=== PATIENT | male | born 1995 | race African-American/Black ===

== ENCOUNTER 2021-08-13 08:35 | Inpatient (IN) ==
--- NOTE | 2021-08-12 09:42 | Anesthesiology Consultation ---
Date of Service August 12, 2021 Assessment & Plan (1) Encounter for pre-operative examination: - COVID screening: Per assessment on 08/12: Travel screen negative, no known COVID-19 positive contacts or current COVID-19 related symptoms. Patient vacci nated. Quarantined per [facility] preop protocol. Per PAT chart check nurse, preop COVID test was still pending but with clarification from surgeon's office, received preop COVID test results- done 08/10 and negative. -Substance use: opioid/amphetamine substance use hx per PAT RN phone interview (no further details) - Medical necessity: Per surgeon note (07/29/21): "His x-rays and MRI are consistent with a chronic osteomyelitis at the fourth and fifth metacarpal bases, and likely extending into the hamate as well. There is severe erosion of the base of those bones, especially at the fifth metacarpal base with dorsal subluxation. This is very likely related to his previous IV drug injections into that area. I advised him that the #1 priority is clearance of the infection. I would highly recommend a debridement surgery, as well as initiation of IV antibiotic therapy based on intraoperative culture results. He would likely need about 3 months of IV antibiotics via PICC line. This will require an inpatient stay until culture results are obtained and infectious disease consultation is obtained. I am not sure how feasible this will be with his current incarcerated status. Only after the infection is completely eradicated could we consider reconstruction of the fourth and fifth metacarpal bases. This would likely require iliac crest bone grafting to make up the bony defect, and permanent fusion of the fourth and fifth CMC joints. He does wish to pursue this treatment option. Risks, benefits, and alternatives of surgery were explained in detail. The surgical procedure, as well as postoperative recovery and rehabilitation, was also explained in detail. Risks include bleeding; persistent infection; damage to surrounding structures such as nerves, blood vessels, and tendons that run in the area; persistent pain, numbness, weakness, or stiffness; or need for further surgery. The patient understands all of this and wishes to proceed with surgery. Preoperative workup was completed today, and informed consent was obtained." Case reviewed with Dr. Chase/Dr. Gilliland. They feel that case is medically necessary to proceed as scheduled. Chart Review Chart Review: Acceptable Risk for Surgery and Patient NOT seen in Pre Admission Testing History Surgery Operation Date: 08/13/21 09:35 Proposed Procedures p Right Hand Incision and Drainage Osteomyelitis 4th and 5th Metacarpal Bases - Cas Forrester M.D. Operation Date: 08/13/21 14:10 Proposed Procedures p Right Hand Incision and Drainage Oateomyelitis 4th snd 5th Metacarpal Bases - Cas Forrester M.D. Height/Weight Height: 5 ft 8 in Weight: 77.111 kg Allergies Allergy/AdvReac Type Severity Reaction Status Date / Time No Known Allergies Allergy Verified 08/13/21 08:55 Medications Home Medications Medication Instructions Recorded Confirmed Last Taken acetaminophen 325 mg tablet 325 mg PO QID PRN 07/29/21 08/13/21 Unknown (Tylenol) levalbuterol tartrate 45 2 inh INHALATION QID PRN 07/29/21 08/13/21 Unknown mcg/actuation aerosol inhaler (Xopenex HFA) prazosin 1 mg capsule 1 mg PO HS 07/29/21 08/13/21 08/12/21 20:30 trazodone 150 mg tablet 300 mg PO HS 07/29/21 08/13/21 08/12/21 20:30 Past Medical History Medical History Adjustment disorder with anxiety Depression Inmate in correctional facility Osteomyelitis Past Family History Family History Other Family history unknown Past Surgical History Surgical History (Updated 08/13/21 @ 08:55 by Mary Medrano RN) H/O removal of cyst from head Surgical history unknown Social History Smoking Status: Unknown if ever smoked Hx Substance Use: Yes substance use type: amphetamines and opiates Physical Exam Vital Signs Last Vital Signs Temp 97.9 F 08/13/21 09:01 Pulse 55 L 08/13/21 09:01 Resp 16 08/13/21 09:01 BP 114/74 08/13/21 09:01 Pulse Ox 98 08/13/21 09:01
[~2021-08-13 08:35] MED LIST: ROPIVACAINE 0.5% 5 MG/ML 30 ML VIAL ONE
[2021-08-13] MEDS ORDERED: ATROPINE SULFATE 0.1 MG/ML 10ML SYR IV PRN (09:20)
[2021-08-13] MEDS ORDERED: ONDANSETRON INJ 2 MG/ML 2 ML VIAL IV PRN ×2 (09:20→16:02)
[2021-08-13] MEDS ORDERED: fentaNYL citrate 100 MCG/2 ML VIAL IV PRN (09:20)
[2021-08-13] MEDS ORDERED: ePHEDrine sulfate 50 MG/ML AMP IV PRN (09:20)
[2021-08-13] MEDS ORDERED: ONDANSETRON INJ 2 MG/ML 2 ML VIAL ONE (10:09)
[2021-08-13] MEDS ORDERED: fentaNYL citrate 100 MCG/2 ML VIAL ONE (10:09)
--- NOTE | 2021-08-13 11:02 | History & Physical Bridge Note ---
Date of Service August 13, 2021 History & Physical Bridge Note I have examined the patient, reviewed the History & Physical and in the interval since the performance of the History & Physical I have noted the following changes of clinical significance: no changes noted
[2021-08-13] MEDS ORDERED: LIDOCAINE 1% LOCAL 20 ML VIAL ONE (11:03)
[2021-08-13] MEDS ORDERED: BUPIVACAINE 0.5 % 5 MG/1 ML MPF 30ML VIAL ONE (11:03)
[2021-08-13] MEDS ORDERED: MIDAZOLAM HCL 1 MG/ML 2ML VIAL ONE (11:04)
[2021-08-13] MEDS ORDERED: LACTATED RINGER'S 1,000 ML IV SCH (11:15)
[2021-08-13] MEDS ORDERED: LIDOCAINE 2% 2 ML VIAL/AMP(20MG/ML) INFIL ONE (11:34)
[2021-08-13] MEDS ORDERED: PROPOFOL IV EMULSION 10 MG/ML 20 ML VIAL IV ONE (11:34)
[2021-08-13] MEDS ORDERED: TOBRAMYCIN SULFATE VIAL ONE (12:26)
[2021-08-13] MEDS ORDERED: VANCOMYCIN HCL 1000MG/20ML VIAL ONE (12:26)
--- NOTE | 2021-08-13 13:50 | Post Operative Brief Note ---
Immediate Post Op Note v1 Date of Surgery August 13, 2021 Pre & Post Diagnosis Operation Date: 08/13/21 09:35 Pre-Op Diagnosis: Right Hand Chronic Osteomyelitis of 4th and 5th Metacarpal Bases Post-Op Diagnosis: Right Hand Chronic Osteomyelitis of 4th and 5th Metacarpal Bases I identified the patient and participated in the time-out.: Yes Procedure Operation Date: 08/13/21 09:35 Actual Procedures 1. Right hand debridement, irrigation, partial excision of 4th metacarpal base chronic osteomyelitis with placement of antibiotic cement spacer ([id number]) 2. Right hand debridement, irrigation, partial excision of 5th metacarpal base chronic osteomyelitis with placement of antibiotic cement spacer ([id number]) - Cas Forrester M.D. Surgeon Cas Forrester Airplane Flight Attendant Nino Alfonso PA-C Estimated Blood Loss 10 Findings Consistent with Post-Op Diagnosis
--- NOTE | 2021-08-13 13:55 | Fluoroscopy Report ---
FL hand RT 3V RTN CLINICAL HISTORY: RT 4TH 5TH KWIRES FOR OSTEOMYELITIS TECHNIQUE: 3 views were obtained with the C-arm in the OR with the above procedure. Total fluoroscopy time was 39.3 seconds. Total skin dose was 1.7 mGy. Comparison: None available at the time of this dictation. FINDINGS/IMPRESSION: Intraoperative images of the right third and fourth metacarpal pinning were obta ined. Please correlate with intraoperative fluoroscopy and operative report. ACT 112: Negative or not required by law. Electronically signed by: Sb Felton M.D. 08/13/2021 1:54 PM
--- NOTE | 2021-08-13 14:14 | Anesthesiology Progress Note ---
Date of Service August 13, 2021 Anesthesia Post Procedure Vital Signs Vital Signs: Temp Pulse Pulse Resp BP Pulse Ox 08/13/21 13:57 97.2 F L 83 14 136/69 100 08/13/21 09:01 97.9 F 55 L 16 114/74 98 Transfer of Care Handoff Completed per policy Notes Mental Status: alert / awake / arousable and participated in evaluation Patient Amnestic to Procedure: Yes Nausea / Vomiting: adequately controlled Pain: adequately controlled Airway Patency, RR, SpO2: stable & adequate BP & HR: stable & adequate Hydration State: stable & adequate Anesthetic Complications: no major complications apparent and Pt Satisfied with anesthetic care
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
[2021-08-13] MEDS ORDERED: bisacodyL 10 MG SUPP PR PRN (16:02)
[2021-08-13] MEDS ORDERED: LEVALBUTEROL TARTRATE 15 GM HFA.AER.AD INH PRN (16:02)
[2021-08-13] MEDS ORDERED: MAGNESIUM HYDROXIDE SUSP 30 ML UDC PO PRN (16:02)
[2021-08-13] MEDS ORDERED: METOCLOPRAMIDE HCL INJ 5 MG/ML 2 ML VIAL IV PRN (16:02)
[2021-08-13] MEDS ORDERED: SODIUM CHLORIDE 0.9% 1000ML 1,000 ML IV SCH (16:02)
[2021-08-13] MEDS ORDERED: NALOXONE HCL 0.4 MG/1 ML VIAL/CARP IV PRN (16:02)
[2021-08-13] MEDS: ACETAMINOPHEN 500 MG TAB PO SCH ×2 (17:33→21:37)
[2021-08-13] MEDS: IBUPROFEN 600 MG TAB PO SCH ×2 (17:33→23:11)
[2021-08-13] MEDS: oxyCODONE HCL IR 5 MG TAB (IMMEDIATE RELEASE) PO PRN ×3 (18:39→23:12)
[2021-08-13] MEDS: DOCUSATE SODIUM 100 MG CAP PO SCH (20:18)
[2021-08-13] MEDS: SENNA 8.6 MG TAB PO SCH (20:18)
[2021-08-13] MEDS: PRAZOSIN HCL 1 MG CAP PO SCH (20:18)
[2021-08-13] MEDS: ceFAZolin 2000MG 2,000 MG/15 ML SYR IV SCH (20:19)
[2021-08-13] MEDS: traZODone HCL 100 MG TAB PO SCH (20:19)
[2021-08-14] MEDS: oxyCODONE HCL IR 5 MG TAB (IMMEDIATE RELEASE) PO PRN ×4 (03:01→21:17)
[2021-08-14] MEDS: ceFAZolin 2000MG 2,000 MG/15 ML SYR IV SCH (05:12)
[2021-08-14] MEDS: ACETAMINOPHEN 500 MG TAB PO SCH ×3 (05:15→21:20)
[2021-08-14] MEDS: IBUPROFEN 600 MG TAB PO SCH ×4 (05:15→23:55)
[2021-08-14 05:16] LABS: Hematocrit (blood only) 33.1 % (42-52); Mean Corpuscular Hemoglobin 29.7 pg (25-34); Mean Corpuscular Hgb Conc 33.2 g/dL (32-36); Mean Corpuscular Volume 89.5 fL (80-100); Mean Platelet Volume 9.6 fL (7.4-10.4); Platelet Count 226 K/uL (130-400); RDW Coefficient of Variation 13.7 % (11.5-14.5); RDW Standard Deviation 44.8 fL (36.4-46.3); White Blood Count 5.56 K/uL (4.8-10.8)
[2021-08-14 05:39] LABS: BUN Creatinine Ratio 11.7 (10-20); Calcium 8.5 mg/dl (8.5-10.1); Creatinine Clr Calc Pharmacy 87.9 ml/min; Est GFR (African American) 84.5 ml/min; Est GFR (Non-African American) 72.9 ml/min; Potassium 3.6 mmol/L (3.5-5.1)
[2021-08-14] MEDS: DOCUSATE SODIUM 100 MG CAP PO SCH ×2 (08:34→21:18)
[2021-08-14] MEDS: MULTIVITAMIN TAB PO SCH (08:34)
--- NOTE | 2021-08-14 08:36 | Orthopedic Progress Note ---
Date of Service August 14, 2021 Assessment & Plan (1) Acute osteomyelitis of metacarpal bone of right hand: Plan: Postop day 1 status post 1. Right hand debridement, irrigation, partial excision of 4th metacarpal base chronic osteomyelitis with placement of antibi otic cement spacer ([id number]) 2. Open reduction and pinning of 4th carpometacarpal joint dislocation (09692) 3. Right hand debridement, irrigation, partial excision of 5th metacarpal base chronic osteomyelitis with placement of antibiotic cement spacer (79485)4. Open reduction and pinning of 5th carpometacarpal joint dislocation (96635) Cultures pending. Wound culture showing gram positive bacilli. Infectious disease consult placed. Awaiting their input. Continue IV antibiotics Admission and Anticipated Discharge Date Admission Date: August 13, 2021 Subjective Postop day 1 Patient sitting up in bed awake and alert. Eating breakfast. Having a little bit of pain this morning. No other complaints. Physical Exam Physical Exam: Splint/dressing is clean, dry, and intact. Fingers are mobile with minimal swelling. Sensation is intact. Capillary refill is less than 2 seconds. Results & Data ([facility]) Vital Signs (Past 12 Hours) Vital Signs Temp Pulse Resp BP Pulse Ox 08/14/21 07:40 36.9 C 55 L 14 109/66 94 08/14/21 02:58 36.5 C 54 L 16 105/64 96 08/13/21 23:05 36.5 C 50 L 16 107/67 98
[2021-08-14] MEDS: traZODone HCL 100 MG TAB PO SCH (21:19)
[2021-08-14] MEDS: SENNA 8.6 MG TAB PO SCH (21:19)
[2021-08-14] MEDS: PRAZOSIN HCL 1 MG CAP PO SCH (21:20)
[2021-08-15] MEDS: IBUPROFEN 600 MG TAB PO SCH ×3 (06:05→17:21)
[2021-08-15] MEDS: ACETAMINOPHEN 500 MG TAB PO SCH ×3 (06:05→21:07)
[2021-08-15] MEDS: DOCUSATE SODIUM 100 MG CAP PO SCH ×2 (07:38→21:08)
[2021-08-15] MEDS: MULTIVITAMIN TAB PO SCH (07:38)
[2021-08-15] MEDS: oxyCODONE HCL IR 5 MG TAB (IMMEDIATE RELEASE) PO PRN ×3 (09:54→21:06)
--- NOTE | 2021-08-15 12:05 | Orthopedic Progress Note ---
Date of Service August 15, 2021 Assessment & Plan (1) Acute osteomyelitis of metacarpal bone of right hand: Plan: Postop day 2 status post 1. Right hand debridement, irrigation, partial excision of 4th metacarpal base chronic osteomyelitis with placement of antibi otic cement spacer (40868) 2. Open reduction and pinning of 4th carpometacarpal joint dislocation (07529) 3. Right hand debridement, irrigation, partial excision of 5th metacarpal base chronic osteomyelitis with placement of antibiotic cement spacer (78486)4. Open reduction and pinning of 5th carpometacarpal joint dislocation (44280) Splint and dressing kept in place. Cultures pending. Wound culture showing gram positive bacilli. Infectious disease consult placed. Awaiting their input. Continue IV antibiotics Admission and Anticipated Discharge Date Admission Date: August 13, 2021 Subjective Postop day 2 States he was having some pain in the hand this morning. No other complaints. Denies chest pain, shortness of breath, lightheadedness. Physical Exam Constitutional: WD/WN, vitals as above Musculoskeletal: Extremities: + hand abnormality Right (Splint C/D/I right wrist. Fingers mobile. Cap refill immediate.) Results & Data ([facility]) Vital Signs (Past 12 Hours) Vital Signs Temp Pulse Resp BP Pulse Ox 08/15/21 07:41 36.5 C 55 L 16 115/71 95
[2021-08-15] MEDS: PRAZOSIN HCL 1 MG CAP PO SCH (21:07)
[2021-08-15] MEDS: traZODone HCL 100 MG TAB PO SCH (21:08)
[2021-08-15] MEDS: SENNA 8.6 MG TAB PO SCH (21:08)
[2021-08-16] MEDS: IBUPROFEN 600 MG TAB PO SCH ×5 (00:03→23:16)
[2021-08-16] MEDS: ACETAMINOPHEN 500 MG TAB PO SCH ×3 (05:20→22:13)
[2021-08-16] MEDS: oxyCODONE HCL IR 5 MG TAB (IMMEDIATE RELEASE) PO PRN ×4 (05:20→23:15)
[2021-08-16] MEDS: MULTIVITAMIN TAB PO SCH (07:44)
[2021-08-16] MEDS: DOCUSATE SODIUM 100 MG CAP PO SCH ×2 (07:44→22:14)
[2021-08-16] MEDS ORDERED: PIPERACILL/TAZOBAC CONSULT ACTIVE PRN (09:37)
--- NOTE | 2021-08-16 09:40 | Orthopedic Progress Note ---
Date of Service August 16, 2021 Assessment & Plan (1) Acute osteomyelitis of metacarpal bone of right hand: Plan: POD #3 s/p 1. Right hand debridement, irrigation, partial excision of 4th metacarpal base chronic osteomyelitis with placement of antibiotic cement spacer (03420) 2. Open reduction and pinning of 4th carpometacarpal joint dislocation (38046) 3. Right hand debridement, irrigation, partial excision of 5th metacarpal base chronic osteomyelitis with placement of antibiotic cement spacer (98353) 4. Open reduction and pinning of 5th carpometacarpal joint dislocation (46800) Still awaiting ID input. The patient was not placed on antibiotics because input was anticipated prior to the weekend. We will start Zosyn 3.375 g IV every 6 hours. Splint and dressing were kept in place today. Discharge planningwe will plan for return to the snf once IV antibiotic choice has been given by ID. Admission and Anticipated Discharge Date Admission Date: August 13, 2021 Subjective Postop day 3 Pain is controlled today no other complaints. Denies chest pain, shortness of breath, lightheadedness. Physical Exam Constitutional: WD/WN, vitals as above Musculoskeletal: Extremities: + hand abnormality Right (Splint is C/D/I. Fingers mobile. Cap refill immediate.) Results & Data ([facility]) Vital Signs (Past 12 Hours) Vital Signs Temp Pulse Resp BP Pulse Ox 08/16/21 07:42 36.6 C 61 16 93/53 L 95 08/15/21 22:38 36.9 C 61 20 108/58 L 97 Laboratory Results Gram-positive bacilli on Gram stain. Cultures are still pending. No growth at this time.
[2021-08-16] MEDS ORDERED: PIPERACILLIN/TAZOBACTAM 3.375 GM in DEXTROSE 5% 100 ML IV STA (09:47)
[2021-08-16] MEDS: PIPERACILLIN/TAZOBACTAM 3.375 GM in DEXTROSE 5% 100 ML IV SCH ×2 (15:06→22:08)
[2021-08-16] MEDS: PRAZOSIN HCL 1 MG CAP PO SCH (22:13)
[2021-08-16] MEDS: SENNA 8.6 MG TAB PO SCH (22:14)
[2021-08-16] MEDS: traZODone HCL 100 MG TAB PO SCH (22:15)
[2021-08-17] MEDS: PIPERACILLIN/TAZOBACTAM 3.375 GM in DEXTROSE 5% 100 ML IV SCH (06:13)
[2021-08-17] MEDS: IBUPROFEN 600 MG TAB PO SCH ×4 (06:15→23:01)
[2021-08-17] MEDS: ACETAMINOPHEN 500 MG TAB PO SCH ×3 (06:15→23:00)
[2021-08-17 07:15] LABS: Creatinine Clr Calc Pharmacy 88.6 ml/min; Est GFR (African American) 85.3 ml/min; Est GFR (Non-African American) 73.6 ml/min
--- NOTE | 2021-08-17 07:59 | Orthopedic Progress Note ---
Date of Service August 17, 2021 Assessment & Plan (1) Acute osteomyelitis of metacarpal bone of right hand: Plan: POD #4 s/p 1. Right hand debridement, irrigation, partial excision of 4th metacarpal base chronic osteomyelitis with placement of antibiotic cement spacer ([id number]) 2. Open reduction and pinning of 4th carpometacarpal joint dislocation (80270) 3. Right hand debridement, irrigation, partial excision of 5th metacarpal base chronic osteomyelitis with placement of antibiotic cement spacer (15317) 4. Open reduction and pinning of 5th carpometacarpal joint dislocation (15831) There is an ID report in the chart from postop day #1 the recommended IV vancomycin until cultures are finalized. We will stop the Zosyn today. And start IV vancomycin. Awaiting cultures to be finalized. No growth to date. Splint and dressing were kept in place today. Discharge planningwe will plan for return to the [facility] once IV antibiotic choice has been given by ID. Also spoken with the officers who are with the patient. Last patient they had the required IV antibiotics, there was some time necessary to set up the proper treatment at the [facility]. Once the cultures are finalized and ID gives their final recommendation, we will begin set up of 6 weeks of IV antibiotic treatment at the [facility]. Admission and Anticipated Discharge Date Admission Date: August 13, 2021 Subjective Postop day 4 Pain is controlled today no other complaints. Denies chest pain, shortness of breath, lightheadedness. Physical Exam Constitutional: WD/WN, vitals as above Musculoskeletal: Extremities: + hand abnormality Right (Splint and dressing C/D/I. Fingers mobile. Cap refill immediate.) Results & Data ([facility]) Vital Signs (Past 12 Hours) Vital Signs Temp Pulse Resp BP Pulse Ox 08/16/21 22:08 36.7 C 50 L 16 107/64 96
[2021-08-17] MEDS ORDERED: VANCOMYCIN CONSULT ACTIVE PRN (08:00)
[2021-08-17] MEDS ORDERED: VANCOMYCIN HCL 2,000 MG in SODIUM CHLORIDE 0.9% 500 ML IV ONE (08:30)
[2021-08-17] MEDS: oxyCODONE HCL IR 5 MG TAB (IMMEDIATE RELEASE) PO PRN ×4 (08:54→19:29)
[2021-08-17] MEDS: DOCUSATE SODIUM 100 MG CAP PO SCH ×2 (08:55→20:47)
[2021-08-17] MEDS: MULTIVITAMIN TAB PO SCH (08:55)
--- NOTE | 2021-08-17 11:38 | Pharmacy Report ---
Pharmacy Vanc AUC Short Note - Date of Service August 17, 2021 - Assessment & Plan Assessment 26 year old M receiving Vancomycin for treatment of R hand osteomyelitis. * OR cultures still pending at this time. * ID consulted and recommend vancomycin for now with tailored IV abx per culture results for 6 weeks. Plan Vancomycin * AUC/MAGO is the preferred PK/PD target for vancomycin * AUC guided dosing is effective and associated with decreased risk of nephrotoxicity compared to traditional trough targets * Loading dose of 2000 mg (24 mg/kg) IV x 1 this AM * Maintenance dose of 1000 mg (12 mg/kg) IV every 12 hours * Expected to achieve steady-state AUC/MAGO and trough of 516 mg/L.hr and 16.6 mcg/mL, respectively (both at goal). Associated risk of nephrotoxicity is only 12%. * Trough level ordered for 08/19/21 prior to 0900 dose. Pharmacy will continue to follow and will adjust dose/frequency as necessary. Thank you.
[2021-08-17] MEDS: SENNA 8.6 MG TAB PO SCH (20:47)
[2021-08-17] MEDS: VANCOMYCIN HCL 1,000 MG in SODIUM CHLORIDE 0.9% 250 ML IV SCH (20:49)
[2021-08-17] MEDS: traZODone HCL 100 MG TAB PO SCH (20:50)
[2021-08-17] MEDS: PRAZOSIN HCL 1 MG CAP PO SCH (20:50)
[2021-08-18] MEDS: IBUPROFEN 600 MG TAB PO SCH ×4 (05:57→23:17)
[2021-08-18] MEDS: ACETAMINOPHEN 500 MG TAB PO SCH ×3 (05:57→21:39)
[2021-08-18 07:29] LABS: Creatinine Clr Calc Pharmacy 92.1 ml/min; Est GFR (African American) 89.4 ml/min; Est GFR (Non-African American) 77.1 ml/min
[2021-08-18] MEDS: oxyCODONE HCL IR 5 MG TAB (IMMEDIATE RELEASE) PO PRN ×4 (08:32→23:17)
[2021-08-18] MEDS: DOCUSATE SODIUM 100 MG CAP PO SCH ×2 (08:32→21:39)
[2021-08-18] MEDS: VANCOMYCIN HCL 1,000 MG in SODIUM CHLORIDE 0.9% 250 ML IV SCH ×2 (08:33→21:38)
[2021-08-18] MEDS: MULTIVITAMIN TAB PO SCH (08:34)
--- NOTE | 2021-08-18 13:47 | Orthopedic Progress Note ---
Date of Service August 18, 2021 Assessment & Plan (1) Acute osteomyelitis of metacarpal bone of right hand: Plan: POD #5 s/p 1. Right hand debridement, irrigation, partial excision of 4th metacarpal base chronic osteomyelitis with placement of antibiotic cement spacer ([id number]) 2. Open reduction and pinning of 4th carpometacarpal joint dislocation (75212) 3. Right hand debridement, irrigation, partial excision of 5th metacarpal base chronic osteomyelitis with placement of antibiotic cement spacer (66940) 4. Open reduction and pinning of 5th carpometacarpal joint dislocation (32275) There is an ID report in the chart from postop day #1 the recommended IV vancomycin 1000 mg twice daily for 6 weeks. Cultures finalized today. No growth on the cultures. I discussed the case with infectious disease team. They continue to recommend the IV vancomycin twice daily. Per Dr. Cordova from [place], anything less would be jeopardizing the patient's health and recovery. Dr. Forrester has asked me to get a PICC line consent for this patient. Discussed case with case management. They will need to get approval from [facility] where he has been transferred to, for his PICC line. Awaiting input from [facility]. PICC line consent signed by patient. We will put an order when approved. Continue IV vancomycin. If patient still here tomorrow, plan for trough level to be done for his vancomycin. Discharge planningwe will plan for return to the half-way once PICC line has been approved by [place] Admission and Anticipated Discharge Date Admission Date: August 13, 2021 Subjective Postop day 5 Patient continues to remain stable. Sleeping upon arrival but easily awoken. No complaints. Physical Exam Physical Exam: Splint is clean, dry, and intact. Moving his fingers well is. Sensation intact. Good capillary refill. Results & Data ([facility]) Vital Signs (Past 12 Hours) Vital Signs Temp Pulse Resp BP Pulse Ox 08/18/21 07:41 36.5 C 60 18 109/68 96
[2021-08-18] MEDS: SENNA 8.6 MG TAB PO SCH (21:38)
[2021-08-18] MEDS: traZODone HCL 100 MG TAB PO SCH (21:39)
[2021-08-18] MEDS: PRAZOSIN HCL 1 MG CAP PO SCH (21:39)
[2021-08-19] MEDS: ACETAMINOPHEN 500 MG TAB PO SCH ×2 (06:29→15:18)
[2021-08-19] MEDS: IBUPROFEN 600 MG TAB PO SCH ×2 (06:29→12:28)
[2021-08-19] MEDS: oxyCODONE HCL IR 5 MG TAB (IMMEDIATE RELEASE) PO PRN ×2 (07:51→12:29)
[2021-08-19] MEDS ORDERED: VANCOMYCIN TROUGH ONE (08:30)
[2021-08-19] MEDS: VANCOMYCIN HCL 1,000 MG in SODIUM CHLORIDE 0.9% 250 ML IV SCH (09:37)
[2021-08-19] MEDS: DOCUSATE SODIUM 100 MG CAP PO SCH (09:37)
[2021-08-19] MEDS: MULTIVITAMIN TAB PO SCH (09:37)
[2021-08-19 09:48] LABS: Creatinine Clr Calc Pharmacy 108.5 ml/min; Est GFR (African American) 108.9 ml/min
--- NOTE | 2021-08-19 10:21 | Pharmacy Report ---
Pharmacy Vanc AUC Short Note - Date of Service August 19, 2021 - Assessment & Plan Assessment 26 year old M receiving vancomycin for treatment of osteomyelitis. Pertinent microbiologic data includes: N/A. Day # of antimicrobial therapy. Plan Vancomycin * AUC/MAGO is the preferred PK/PD target for vancomycin * AUC guided dosing is effective and associated with decreased risk of nephrotoxicity compared to traditional trough targets * Trough level of 8.7 mcg/mL is predicted to achieve target AUC/MAGO <400 mg/L.hr and may be associated with a 6 % risk of nephrotoxicity * Change to 1500 mg IV every 12 hours. Projective to achieve target AUC/MAGO 400- 600 mg/L.hr and associated with a 10% risk of nephrotoxicity. * Trough to be ordered every 3 days until 2 troughs therapeutic then obtain at least weekly. Pharmacy will continue to follow and will adjust dose/frequency as necessary. Thank you.
--- NOTE | 2021-08-19 14:45 | Orthopedic Progress Note ---
Date of Service August 19, 2021 Assessment & Plan (1) Acute osteomyelitis of metacarpal bone of right hand: Plan: POD #6 s/p 1. Right hand debridement, irrigation, partial excision of 4th metacarpal base chronic osteomyelitis with placement of antibiotic cement spacer (28383) 2. Open reduction and pinning of 4th carpometacarpal joint dislocation (02148) 3. Right hand debridement, irrigation, partial excision of 5th metacarpal base chronic osteomyelitis with placement of antibiotic cement spacer (60509) 4. Open reduction and pinning of 5th carpometacarpal joint dislocation (98496) There is an ID report in the chart from postop day #1 the recommended IV vancomycin 1000 mg twice daily for 6 weeks. Cultures finalized today. No growth on the cultures. I discussed the case with infectious disease team. They continue to recommend the IV vancomycin twice daily. Per Dr. Cordova from ID, anything less would be jeopardizing the patient's health and recovery. Picc line placed per Dr. Forrester's request. Trough level 8.7; Pharmacy has changed dose to 1500mg IV bid. Discharge planning Discussed changes in medication dosage with Dr. Ayers at [facility]. Plans are in place to take care of Mr. Faria at [facility] to [facility] today. Admission and Anticipated Discharge Date Admission Date: August 13, 2021 Subjective No complaints today. Discussed plans for dc. Physical Exam Physical Exam: Dressing/Splint C/D/I. Moving fingers well. Results & Data ([facility]) Vital Signs (Past 12 Hours) Vital Signs Temp Pulse Resp BP Pulse Ox 08/19/21 07:41 36.7 C 54 L 16 107/66 97
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
[2021-08-19] MEDS ORDERED: VANCOMYCIN HCL 1,500 MG in SODIUM CHLORIDE 0.9% 500 ML IV SCH (18:00)
== END 2021-08-19 18:08 | DRG 514 ==
LOC: ASU 08:35 → PACUINP 14:35 → 3E 16:02
DX: M86.641 Other chronic osteomyelitis, right hand